=== PATIENT | male | born 1965 | race Caucasian/White ===

== ENCOUNTER 2016-06-14 04:46 | Emergency (ER) | payer BC ==
[~2016-06-14] VITALS: Ht 177.8 cm; Wt 188.2 kg
[2016-06-14 05:15] LABS: MCH 31.6 PG (29.0-34.0); MCHC 34.6 G/DL (30.0-36.0); MCV 91.3 FL (86-99); MEAN PLAT.VOLUME 8.9 uM^3 (9.0-12.4); PLATELET COUNT 261 K/uL (156-360); RBC DIS.WIDTH-CV 12.7 % (11.8-14.6); RED BLOOD COUNT 5.26 M/uL (4.00-5.50); WHITE BLOOD COUNT 10.4 K/uL (4.1-10.2)
[2016-06-14 05:23] LABS: CHLORIDE 97 mEq/L (99-109); POTASSIUM 3.9 mEq/L (3.7-5.4); SODIUM 132 mEq/L (136-147)
[2016-06-14 05:26] LABS: GLUCOSE 278 mg/dL (70-99)
[2016-06-14 05:27] LABS: ANION GAP 13 MEQ/L (2-14)
[2016-06-14 05:28] LABS: TOTAL BILIRUBIN 0.5 mg/dL (0.0-1.0)
[2016-06-14 05:29] LABS: ALKALINE PHOSPHATASE 90 IU/L (3-129); GFR ESTIMATE (CALCULATED) > 59 mL/min/
[2016-06-14 05:30] LABS: UREA NITROGEN (BUN) 8 mg/dL (9-23)
[2016-06-14] MEDS ORDERED: ZOFRAN8 MG PO (06:36)
[2016-06-14] MEDS ORDERED: BENTYL20 MG PO (06:36)
[2016-06-14] MEDS ORDERED: AZITHROMYCIN250 MG PO (06:43)
[2016-06-14 07:15] LABS: INFLUENZA A VIRAL ANTIGEN NEGATIVE; INFLUENZA B VIRAL ANTIGEN POSITIVE
[2016-06-14 09:03] VITALS: BP 143/85
== END 2016-06-14 09:07 | disposition home or self-care (01) ==
LOC: EME 04:46
PROVIDERS: Emergency Medicine
DX: J10.1 Influenza due to other identified influenza virus with other respiratory manifestations (principal); J20.9 Acute bronchitis, unspecified; R73.9 Hyperglycemia, unspecified; Z87.442 Personal history of urinary calculi; F17.200 Nicotine dependence, unspecified, uncomplicated
CPT/HCPCS: 71020; 74177; 80053; 81003; 83690; 85027; 87502; 94640; 99281; 99284; J1885; J2405; J7030

== ENCOUNTER 2016-06-20 20:22 | Observation (INO) | payer BC ==
[~2016-06-20] VITALS: Ht 180.3 cm; Wt 185.6 kg
[~2016-06-20 20:22] MED LIST: AZITHROMYCIN250 MG PO; BENTYL20 MG PO; ZOFRAN8 MG PO
[2016-06-20 21:16] LABS: HEMATOCRIT 47.8 % (38.0-50.0); MCH 30.9 PG (29.0-34.0); MCHC 33.7 G/DL (30.0-36.0); MCV 91.7 FL (86-99); MEAN PLAT.VOLUME 8.4 uM^3 (9.0-12.4); PLATELET COUNT 330 K/uL (156-360); RBC DIS.WIDTH-CV 12.8 % (11.8-14.6); RED BLOOD COUNT 5.21 M/uL (4.00-5.50); WHITE BLOOD COUNT 8.9 K/uL (4.1-10.2)
[2016-06-20 21:22] LABS: INTER. NORMALIZED RATIO 1.1; PROTHROMBIN TIME 10.7 (9.2-11.2); PTT 30.2 (25-32)
[2016-06-20 21:23] LABS: CHLORIDE 100 mEq/L (99-109); POTASSIUM 3.6 mEq/L (3.7-5.4); SODIUM 138 mEq/L (136-147)
[2016-06-20 21:26] LABS: GLUCOSE 274 mg/dL (70-99)
[2016-06-20 21:27] LABS: ANION GAP 9 MEQ/L (2-14)
[2016-06-20 21:29] LABS: ALKALINE PHOSPHATASE 65 IU/L (3-129)
[2016-06-20 21:30] LABS: GFR ESTIMATE (CALCULATED) > 59 mL/min/
[2016-06-20 21:31] LABS: DIRECT BILIRUBIN 0.4 mg/dL (0.0-0.3); UREA NITROGEN (BUN) 8 mg/dL (9-23)
[2016-06-20 21:36] LABS: TOTAL BILIRUBIN 0.9 mg/dL (0.0-1.0)
[2016-06-20 22:48] LABS: TROP-I INTERPRETATION NEGATIVE; TROPONIN-I < 0.01 ng/mL (0.0-0.30)
[2016-06-21] MEDS ORDERED: CENTRUM COMPLE1 EACH PO (00:49)
[2016-06-21] MEDS ORDERED: ROBITUSSIN100 MG/5 M PO (00:49)
[2016-06-21 02:11] VITALS: BP 178/82
[2016-06-21 05:40] VITALS: BP 162/94
[2016-06-21 08:40] LABS: INTERNAL CONTROL VALID? YES
[2016-06-21 08:48] VITALS: BP 134/76
[2016-06-21 09:05] LABS: EOSINOPHIL (%) 0.8 % (0-5); EOSINOPHIL COUNT 0.1 K/uL (0-0.3); HEMATOCRIT 42.8 % (38.0-50.0); IMMATURE GRANULOCYTE (%) 0.5 % (0.0-0.7); IMMATURE GRANULOCYTE COUNT 0.1 K/uL; INSTRUMENT ABS NEUTROPHIL CT 7.8 K/uL; LYMPHOCYTE COUNT 2.3 K/uL (1.0-2.8); MCH 30.9 PG (29.0-34.0); MCHC 33.4 G/DL (30.0-36.0); MCV 92.4 FL (86-99); MEAN PLAT.VOLUME 8.4 uM^3 (9.0-12.4); MONOCYTE (%) 8.7 % (3-12); NEUTROPHIL (%) 69.1 % (45-76); NEUTROPHIL COUNT 7.8 K/uL (1.8-6.4); PLATELET COUNT 346 K/uL (156-360); RBC DIS.WIDTH-SD 44.3 % (39-53); RED BLOOD COUNT 4.63 M/uL (4.00-5.50); WHITE BLOOD COUNT 11.2 K/uL (4.1-10.2)
[2016-06-21 09:20] LABS: ANION GAP 6 MEQ/L (2-14); CHLORIDE 100 MEQ/L (99-109); GFR ESTIMATE (CALCULATED) > 59 mL/min/; GLUCOSE 189 mg/dL (70-99); POTASSIUM 3.9 MEQ/L (3.7-5.4); SAMPLE HEMOLYSIS CHECK 0; SAMPLE ICTERIC CHECK 0; SAMPLE LIPEMIA CHECK 0; SODIUM 138 MEQ/L (136-147); UREA NITROGEN (BUN) 8 mg/dL (9-23)
[2016-06-21] MEDS ORDERED: LEVAQUIN750 MG PO (11:41)
[2016-06-21 11:50] VITALS: BP 175/88
[2016-06-21] MEDS ORDERED: HYDROCHLOROTH12.5 M3 PO (13:25)
== END 2016-06-21 13:59 | disposition home or self-care (01) ==
LOC: EME 20:22 → EDOF 06-21 00:59 → 5WEST 06-21 00:59
PROVIDERS: Emergency Medicine; Family Medicine
DX: K62.5 Hemorrhage of anus and rectum (principal); J18.9 Pneumonia, unspecified organism; E87.6 Hypokalemia; R09.02 Hypoxemia; K58.0 Irritable bowel syndrome with diarrhea; I10 Essential (primary) hypertension; E66.01 Morbid (severe) obesity due to excess calories; Z68.43 Body mass index [BMI] 50.0-59.9, adult
CPT/HCPCS: 71010; 71020; 74177; 80048; 80076; 83605; 84484; 85025; 85027; 85610; 85730; 86850; 86900; 86901; 87106; 87205; 87449; 93005; 99202; 99281; 99285; C9113; G0378; J0456; J0696; J1956; J7030; J7050